=== PATIENT | female | born 1965 | race African-American/Black ===

== ENCOUNTER 2019-06-14 10:13 | Emergency (ER) | payer MEDICAID ==
[~2019-06-14] VITALS: Ht 152.4 cm; Wt 59.0 kg
[2019-06-14] MEDS ORDERED: IBUPROFEN 600MG TABLET PO ONE (11:30)
[2019-06-14 14:01] VITALS: BP 128/74
== END 2019-06-14 14:03 | disposition home or self-care (01) ==
LOC: ER 10:13
DX: R07.89 Other chest pain (principal); M79.602 Pain in left arm; Z98.890 Other specified postprocedural states
CPT/HCPCS: 71045; 72070; 73060; 99283